=== PATIENT | female | born 1995 | race Caucasian/White ===

== ENCOUNTER 2017-03-26 20:58 | Inpatient (IN) | payer OTHER, BC ==
[~2017-03-26] VITALS: Ht 160 cm; Wt 55.8 kg
[2017-03-26 23:29] LABS: *URINE HCG, QUAL NEGATIVE (NEGATIVE)
[2017-03-26 23:36] LABS: *AMPHETAMINE, URINE POSITIVE (NEGATIVE); *BARBITURATE, URINE NEGATIVE (NEGATIVE); *CANNABINOID, URINE POSITIVE (NEGATIVE); *COCCAINE, URINE POSITIVE (NEGATIVE); *OPIATE, URINE POSITIVE (NEGATIVE); *PHENCYCLIDINE SCREEN,URINE NEGATIVE (NEGATIVE)
[2017-03-26] MEDS ORDERED: QUET100T PO (23:47)
[2017-03-26] MEDS ORDERED: CLON0.1T PO (23:48)
[2017-03-26] MEDS ORDERED: METH500T6 PO (23:52)
[2017-03-27] VITALS: BP 126/77
[2017-03-27 00:56] LABS: BASOPHILS # (AUTO) 0.1 K/uL (0.0-8.0); BASOPHILS % (AUTO) 0.5 % (0.0-2.0); EOSINOPHILS # (AUTO) 0.2 K/uL (0.0-0.7); EOSINOPHILS % (AUTO) 1.3 % (0.0-7.0); HEMATOCRIT 41.2 % (37-47); HEMOGLOBIN 14.3 G/DL (12.0-16.0); LYMPHOCYTES # (AUTO) 3.5 K/UL (0.8-4.8); LYMPHOCYTES % (AUTO) 21.6 % (20.5-51.5); MEAN CORPUSCULAR HEMOGLOBIN 30.2 UUG (27.0-31.0); MEAN CORPUSCULAR HGB CONC 35 g/dL (32.0-37.0); MEAN CORPUSCULAR VOLUME 87.1 FL (81.0-99.0); MONOCYTES # (AUTO) 0.7 K/UL (0.1-1.30); MONOCYTES % (AUTO) 4.6 % (0.0-11.0); NEUTROPHILS # (AUTO) 11.5 K/UL (1.8-8.9); PLATELET COUNT (AUTO) 232 K/UL (150-450); RED BLOOD CELL COUNT(AUTO) 4.73 MIL/UL (4.2-5.4)
[2017-03-27 01:09] LABS: ALANINE AMINOTRANSFERASE 122 U/L (14-59); ALKALINE PHOSPHATASE 130 U/L (50-136); ASPARTATE AMINOTRANSFERASE 37 U/L (15-37); BILIRUBIN,TOTAL 0.8 mg/dL (0.2-1.0); CARBON DIOXIDE 33 mmol/L (21-32); CHLORIDE 98 mmol/L (98-107); CREATININE 0.9 mg/dL (0.6-1.3); GLUCOSE 88 mg/dL (74-106); MAGNESIUM 2.1 mg/dL (1.8-2.4); POTASSIUM 3.1 mmol/L (3.5-5.1); TOTAL PROTEIN, SERUM 8.8 g/dL (6.4-8.2); UREA NITROGEN, BLOOD 5 mg/dL (7-18)
[2017-03-27 01:12] LABS: ETHANOL < 3 MG/DL (0-0)
[2017-03-27 04:00] VITALS: BP 106/58
[2017-03-27 08:00] VITALS: BP 126/71
[2017-03-27 12:00] VITALS: BP 97/63
[2017-03-27 16:00] VITALS: BP 114/76
[2017-03-27 20:00] VITALS: BP 111/75
[2017-03-28] VITALS: BP 99/53
[2017-03-28 04:00] VITALS: BP 104/59
[2017-03-28 07:10] LABS: HEPATITIS B SURFACE AG Negative (Negative)
[2017-03-28 07:37] LABS: BASOPHILS # (AUTO) 0.1 K/uL (0.0-8.0); EOSINOPHILS # (AUTO) 0.3 K/uL (0.0-0.7); EOSINOPHILS % (AUTO) 3.7 % (0.0-7.0); HEMATOCRIT 35.6 % (31.2-41.9); HEMOGLOBIN 12.6 g/dL (10.9-14.3); LYMPHOCYTES # (AUTO) 3.3 K/uL (20.0-40.0); LYMPHOCYTES % (AUTO) 47.2 % (20.5-51.5); MEAN CORPUSCULAR HEMOGLOBIN 30.9 uug (24.7-32.8); MEAN CORPUSCULAR HGB CONC 35 g/dL (32.3-35.6); MEAN CORPUSCULAR VOLUME 87.1 fL (75.5-95.3); MONOCYTES # (AUTO) 0.7 K/uL (2.0-10.0); NEUTROPHILS # (AUTO) 2.7 K/uL (1.8-8.9); NEUTROPHILS % (AUTO) 38.1 % (38.5-71.5); PLATELET COUNT (AUTO) 194 K/uL (179-408); RED BLOOD CELL COUNT(AUTO) 4.09 MIL/uL (3.63-4.92)
[2017-03-28 08:15] VITALS: BP 112/61
[2017-03-28 08:28] LABS: BILIRUBIN,DIRECT 0.2 mg/dL (0.0-0.2); BILIRUBIN,TOTAL 0.4 mg/dL (0.2-1.0); CREATININE 0.9 mg/dL (0.6-1.3); MAGNESIUM 2.2 mg/dL (1.8-2.4); POTASSIUM 3.6 mmol/L (3.5-5.1); TOTAL PROTEIN, SERUM 6.9 g/dL (6.4-8.2)
[2017-03-28 12:19] VITALS: BP 106/64
[2017-03-28 17:30] VITALS: BP 108/64
[2017-03-28 20:00] VITALS: BP 124/83
[2017-03-29] VITALS: BP 94/57
[2017-03-29 04:00] VITALS: BP 98/64
[2017-03-29 08:18] VITALS: BP 90/62
[2017-03-29 13:12] VITALS: BP 95/62
[2017-03-29 16:00] VITALS: BP 99/65
[2017-03-29] MEDS ORDERED: IBUP-1955 PO (18:14)
[2017-03-29] MEDS ORDERED: CLON0.1T14 PO (18:14)
[2017-03-29] MEDS ORDERED: DICY20TA28 PO (18:14)
[2017-03-29] MEDS ORDERED: METH-406 PO (18:14)
[2017-03-29] MEDS ORDERED: HYDR-3895 PO (18:14)
[2017-03-29] MEDS ORDERED: ESCI10TA PO (18:14)
[2017-03-29] MEDS ORDERED: GABA-534 PO (18:14)
[2017-03-29] MEDS ORDERED: SULF1TAB3 PO (18:14)
[2017-03-29 21:15] VITALS: BP_SYST 116
[2017-03-30 00:16] VITALS: BP 96/53
[2017-03-30 04:35] VITALS: BP 94/51
[2017-03-30 08:00] VITALS: BP 99/57
[2017-03-30 08:06] VITALS: BP 99/57
== END 2017-03-30 09:33 | disposition home or self-care (01) | DRG 895 ==
LOC: SRC 22:15
PROVIDERS: ADMIT Internal Medicine; ATTEND Internal Medicine
PROC: HZ2ZZZZ Detoxification Services for Substance Abuse Treatment (ICD-10-PCS; principal; 2017-03-26)
PROC: HZ31ZZZ Individual Counseling for Substance Abuse Treatment, Behavioral (ICD-10-PCS; 2017-03-28)
DX: F11.23 Opioid dependence with withdrawal (principal); E87.3 Alkalosis; E88.09 Other disorders of plasma-protein metabolism, not elsewhere classified; M41.9 Scoliosis, unspecified; L02.414 Cutaneous abscess of left upper limb; F32.9 Major depressive disorder, single episode, unspecified; F17.210 Nicotine dependence, cigarettes, uncomplicated; Z91.89 Other specified personal risk factors, not elsewhere classified; S51.832S Puncture wound without foreign body of left forearm, sequela; X78.8XXS Intentional self-harm by other sharp object, sequela; F41.9 Anxiety disorder, unspecified; Z83.3 Family history of diabetes mellitus; Z80.3 Family history of malignant neoplasm of breast; Z80.8 Family history of malignant neoplasm of other organs or systems; Z81.8 Family history of other mental and behavioral disorders; E87.6 Hypokalemia; E86.0 Dehydration; R74.0 Nonspecific elevation of levels of transaminase and lactic acid dehydrogenase [LDH]; F14.10 Cocaine abuse, uncomplicated; F15.10 Other stimulant abuse, uncomplicated; F12.90 Cannabis use, unspecified, uncomplicated; Z79.899 Other long term (current) drug therapy
CPT/HCPCS: 36415; 70030-TC; 80307; 80324; 80349; 80353; 80361; 83735; 84703; 85025; 86580; 86592; 86705; 86803; 87340; 87806; A4663; G0480; J3490